=== PATIENT | female | born 1985 | race Caucasian/White ===

== ENCOUNTER 2023-09-04 11:52 | Outpatient (CLI) | payer BC | END 2023-09-04 19:59 | disposition home or self-care (01) | LOC: SRD 11:52 | PROVIDERS: ATTEND Specialist | DX: N92.0 Excessive and frequent menstruation with regular cycle (principal); N92.6 Irregular menstruation, unspecified; N94.0 Mittelschmerz | CPT/HCPCS: 74740; 58340; Q9967 ==